=== PATIENT | female | born 2000 | race Caucasian/White ===

== ENCOUNTER 2024-06-14 05:18 | Emergency (ER) | payer MEDICAID, SELFPAY ==
[2024-06-14 05:41] VITALS: PULSE 92; RESP 16; O2SAT 100
[2024-06-14 05:43] VITALS: BMI 27.4
[2024-06-14 05:46] VITALS: BP 110/75; PULSE 92; RESP 20; TEMP 36.6; O2SAT 95
--- NOTE | 2024-06-14 07:34 | PD.EDALCOH ---
ED Alcohol RME/HPI General Chief Complaint: Alcohol Stated Complaint: ANXIETY Time Seen by Provider: 06/14/24 06:19 Arrival date/time: 06/14/24 05:18 RME / HPI RME / HPI narrative: DR. BERNAL MAIN ED EVALUATION: 23 year old female with past medical history significant for anxiety presents to the Emergency Department [facility] from home with complaint of alcohol abuse and an anxiety attack. Related Data Home Medications ?Medication ?Instructions ?Recorded ?Confirmed vitamins-iron fumarate 27 1 tab PO QDAY 04/07/18 11/01/20 mg iron-folic acid 0.8 mg tablet ( Vitamin) Previous Rx's ?Medication ?Instructions ?Recorded ibuprofen 800 mg tablet 800 mg PO Q8H PRN pain #30 tabs 11/01/20 Allergies Allergy/AdvReac Type Severity Reaction Status Date / Time No Known Allergies Allergy Verified 06/14/24 05:39 Review of Systems Review of Systems Systems Reviewed: All systems reviewed, normal except as documented Past Medical History Past Medical History REPRODUCTIVE: Positive Previous Pregnancies (X1) HEMATOLOGIC: Positive Blood Disorders and Anemia OTHER HISTORY: Positive Hospitalization ([facility]) and Blood Transfusions Family History FAMILY HISTORY: Positive Family Respiratory Disorders (asthma), Family Cardiac Disorders (great grandmmother) and Family Surgery (great grandmother heart surgery) Social History SMOKING STATUS: Current some day smoker SUBSTANCE USE: does not use ALCOHOL: Never ED Exam Narrative Physical exam: GENERAL APPEARANCE: alert and oriented x 4, well-developed, well-nourished, no acute distress, drunk VITALS: All vitals were reviewed and the pulse ox is 97% on room air, which is normal according to my interpretation. HEENT: Normocephalic, atraumatic; pupils equal, round, reactive to light; EOMI; mucous membranes pink, moist; oropharynx clear NECK: Supple LUNGS: CTABL; no wheezes, no rales, no rhonchi HEART: Regular rate, regular rhythm; normal S1, S2; no murmurs ABDOMEN: non distended; normal BS; soft, no tenderness, no guarding, no rebound; no masses, no organomegaly, no hernia BACK: no CVA tenderness EXTREMITIES: atraumatic; no edema NEUROLOGIC: awake; alert and oriented x4; cranial nerves II-XII grossly intact; no focal sensory or motor deficits PSYCHIATRIC: appropriate mood and affect SKIN: warm, dry, normal color; no rashes Course Quality Measures none Orders Category Date Time Status Alcohol, Blood Medical Stat Lab 06/14/24 07:10 Completed Drug Screen,Urine Stat Lab 06/14/24 08:58 Completed Vital Signs Vital signs: Vital Signs Temperature 97.8 F 06/14/24 05:46 Pulse Rate 92 06/14/24 05:46 Respiratory Rate 20 06/14/24 05:46 Blood Pressure 110/75 06/14/24 05:46 Pulse Oximetry (%) 95 06/14/24 05:46 Oxygen Delivery Method Nasal Cannula 06/14/24 05:46 Discharge Plan Plan Patient Disposition: HOME (Self Care) Prescriptions/Referrals Prescriptions/Med Rec: No Action ibuprofen 800 mg tablet 800 mg PO Q8H PRN (Reason: pain) Qty: 30 0RF Vitamin 27 mg iron- 0.8 mg Tablet 1 tab PO QDAY Referrals: Burt Greco MD [Primary Care Provider] - In 1 week Problem List Clinical Impression: Alcohol intoxication Patient/Caregiver Discharge Instructions Education Materials: ED Alcohol Intoxication Print Language: Macedonian Stand Alone Forms: Lilo Award Info., Patient Portal Info Letter Alcohol MDM Narrative MDM Narrative: Naomie Evans am scribing for and in the presence of Dr. Bernal. Patient data External records reviewed:: EMS form Clinical information provided by:: patient and EMS Social determinants that could affect healthcare access:: alcohol use Patient has the following chronic illnesses:: anxiety How is presenting disease/condition affected by chronic disease/condition?: exacerbated by Evaluation data The following diagnostics were reviewed and interpreted by me:: lab results Lab and/or radiology exams considered but not ordered:: none Interpretation Summary: Alcohol level 199. Medications / Prescriptions Medications or Prescriptions considered but not ordered:: none Medication administrations:: see above if any Consultations Consultation(s) initiated? (list below): No Diagnosis Differential diagnosis alcohol: alcohol withdrawal delirium, alcohol intoxication, alcohol withdrawal syndrome and other (anxiety) Most likely diagnosis given after review of the tests above:: Alcohol intoxication Admission Indicated Admission indicated?: not indicated Admission Request Was there a request for admission?: No Disposition Plan Disposition Plan: Discharge Discharge Attestation Discharge Attestation: The patient and all family members were given an opportunity to ask questions and understood the discharge instructions. Discharge instructions specifically effects, indications for sooner follow up or return to the emergency department, and the expected course of current diagnosis. Patient condition: Stable
[2024-06-14 07:39] VITALS: BP 95/76; PULSE 73; RESP 16; TEMP 36.4; O2SAT 99
--- NOTE | 2024-06-14 08:15 | PC.NURSE ---
Patient laying in [facility] room 19, appears to be sleeping, calm and opens eyes to name. Patient responds to name, patient only nodded yes/no to questions. Patient updated with plan of care, pending studies at this time. Call light is within reach.
[2024-06-14 09:00] VITALS: BP 93/59; PULSE 103; RESP 16; TEMP 36.7; O2SAT 97
--- NOTE | 2024-06-14 09:13 | PC.NURSE ---
Patient awake and ambulated to bathroom for urine specimen collection, patient denies anxiety, c/o some dizziness and right leg pain, denies injury to leg. Patient ambulated back to room and layed on gurney, call remains within reach.
[2024-06-14 09:45] LABS: Amphetamine/Methamp Scrn,U Negative (Negative); Barbiturate Screen,Urine Negative (Negative); Benzodiazepines Screen,Urine Negative (Negative); Benzoylecgonine Screen, Ur Negative (Negative); Fentanyl Screen,Urine Negative (Negative); Opiate Screen,Urine Negative (Negative); THC Screen,Urine Negative (Negative)
[2024-06-14 10:32] VITALS: PULSE 99; RESP 17; O2SAT 97
== END 2024-06-14 10:35 | disposition home or self-care (01) ==
PROVIDERS: Emergency Provider Emergency Medicine; PCP Family Medicine
DX: F10.129 Alcohol abuse with intoxication, unspecified (principal); Y90.6 Blood alcohol level of 120-199 mg/100 ml; F41.9 Anxiety disorder, unspecified
CPT/HCPCS: 36415; 80307; 80320; 99283; G0480

== ENCOUNTER 2025-03-01 13:15 | Emergency (ER) | payer MEDICAID, SELFPAY ==
[2025-03-01 13:29] VITALS: BP 117/80; PULSE 97; RESP 20; TEMP 36.8; O2SAT 98; BMI 27.6
--- NOTE | 2025-03-01 13:39 | PD.EDEYE ---
ED Eye Problem RME/HPI General Chief complaint: Eye Problems Stated complaint: POKED IN L) EYE Time Seen by Provider: 03/01/25 13:18 Arrival date/time: 03/01/25 13:15 24-year-old female presents to the emergency department today stating that her son stories all decibel he poked in the eye with his finger patient reports pain and tearing from the left eye patient reports no disturbances of vision Limitations: no limitations Related Data Home Medications ?Medication ?Instructions ?Recorded ?Confirmed vitamins-iron fumarate 27 1 tab PO QDAY 04/07/18 11/01/20 mg iron-folic acid 0.8 mg tablet ( Vitamin) Previous Rx's ?Medication ?Instructions ?Recorded ibuprofen 800 mg tablet 800 mg PO Q8H PRN pain #30 tabs 11/01/20 tobramycin 0.3 % eye drops 2 drp ophthalmic (eye) Q4H PRN eye 03/01/25 irritation 5 days #5 mL Allergies Allergy/AdvReac Type Severity Reaction Status Date / Time No Known Allergies Allergy Verified 03/01/25 13:18 Review of Systems Review of Systems Systems Reviewed: All systems reviewed, normal except as documented Constitutional Constitutional: Reports system reviewed and no additional complaints, except as documented, Denies fever(s) and Denies headache(s) Eyes Eyes: Reports system reviewed and no additional complaints, except as documented, Denies blurry vision and Reports other (Left eye irritation, tearing) ENT Ears, Nose, Mouth, and Throat: Reports system reviewed and no additional complaints, except as documented, Denies headache(s), Denies nasal congestion and Denies nasal discharge Cardiovascular Cardiovascular: Reports system reviewed and no additional complaints, except as documented, Denies chest pain and Denies dyspnea Respiratory Respiratory: Reports system reviewed and no additional complaints, except as documented, Denies chest congestion, Denies cough and Denies dyspnea Gastrointestinal Gastrointestinal: Reports system reviewed and no additional complaints, except as documented and Denies abdominal pain Integumentary/Breasts Skin/Breast: Reports system reviewed and no additional complaints, except as documented and Denies rash Neurologic Neurologic: Reports system reviewed and no additional complaints, except as documented, Reports as per HPI and Denies headache(s) Past Medical History Past Medical History NEUROLOGIC: Negative Neurological Disorders CARDIAC: Negative Cardiac Disorders or Congestive Heart Failure RESPIRATORY: Negative Chronic Obstructive Pulmonary Disease (COPD) GASTROINTESTINAL: Negative Gastrointestinal Disorders, Hepatitis or Colorectal Cancer GENITOURINARY: Negative Genitourinary Disorders, Renal Disease or Prostate Cancer REPRODUCTIVE: Positive Previous Pregnancies (X1); Negative Breast Cancer, Endometriosis, Genital Herpes, Gonorrhea, Pelvic Inflammatory Disease, Syphilis, Testicular Cancer or Uterine Prolapse MUSCULOSKELETAL: Negative Musculoskeletal Disorders or Bone Cancer ENDOCRINE: Negative Endocrine Disorders, Diabetes Mellitus Type 1 or Diabetes Mellitus Type 2 HEMATOLOGIC: Positive Blood Disorders and Anemia OTHER HISTORY: Positive Hospitalization ([facility]) and Blood Transfusions; Negative Autoimmune Disease, Down Syndrome, Developmental Delay, Shingles, Falls, Blood Transfusion Reaction, Anesthesia Reactions, MRSA, VRSA, Vancomycin-Resistant Enterococci, Human Immunodeficiency Virus (HIV), Chicken Pox, Measles, Mumps, Rubella (Bangladeshi Measles), Pertussis, Clostridium Difficile, Cancer, Breast Cancer, Cervical Cancer, Colorectal Cancer, Lung Cancer, Ovarian Cancer, Prostate Cancer or Testicular Cancer Family History FAMILY HISTORY: Positive Family Respiratory Disorders (asthma), Family Cardiac Disorders (great grandmmother) and Family Surgery (great grandmother heart surgery); Negative Family Psychiatric Problems, Family Gastrointestinal Problems, Family Cancer or Family Anesthesia Reaction Surgical History SURGICAL: Negative Section Social History SMOKING STATUS: Current every day smoker SUBSTANCE USE: does not use ED Exam General Limitations: Present no limitations General appearance: Present alert and in no apparent distress Head Head exam: Present atraumatic, normocephalic and normal inspection Eye Eye exam: Present normal appearance, PERRL and EOMI ENT ENT exam: Present normal exam, normal oropharynx and mucous membranes moist Neck Neck exam: Present normal inspection, full ROM and trachea midline Chest Chest inspection: Present normal inspection and symmetric chest wall rise Respiratory Respiratory exam: Present normal lung sounds bilaterally Cardiovascular Cardiovascular exam: Present regular rate, normal rhythm and normal heart sounds Abdominal Exam Abdominal exam: Present soft and normal bowel sounds Extremities Exam Extremities exam: Present normal inspection and full ROM Back Exam Back exam: Present normal inspection and full ROM Neurological Exam Neurological exam: Present alert, oriented X3 and CN II-XII intact Psychiatric Psychiatric exam: Present normal affect and normal mood Skin Skin exam: Present warm, dry, intact and normal color Course Quality Measures none Orders Category Date Time Status ED Eye Irrigation ONCE Care 03/01/25 13:38 Completed Colon Lamp to Bedside X1 Care 03/01/25 13:38 Completed Fluorescein Sodium [Bio-Jamia] Med 03/01/25 13:38 Discontinued 1 mg LEFT EYE X1 ONE TETRACAINE Op Avis 0.5% [Pontocaine Op Avis 0.5%] Med 03/01/25 13:38 Discontinued 1 drop LEFT EYE X1 ONE Vital Signs Vital signs: Vital Signs Temperature 98.3 F 03/01/25 13:29 Pulse Rate 97 03/01/25 13:29 Respiratory Rate 20 03/01/25 13:29 Blood Pressure 117/80 03/01/25 13:29 Pulse Oximetry (%) 98 03/01/25 13:29 Oxygen Delivery Method Room Air 03/01/25 13:29 O2 saturation 98% room air within normal limits Eye MDM Narrative MDM Narrative:: 24-year-old female presents to the emergency department today stating that her son stories all decibel he poked in the eye with his finger patient reports pain and tearing from the left eye patient reports no disturbances of vision On exam patient is tearing from the left eye and reports pain Patient had tetracaine instilled to the eye and I examined the patient's eye patient reports that he has complete relief of symptoms Patient reports no disturbances of vision pupils normal Patient discharged home in no distress to follow-up with primary care doctor in the next 24 to 48 hours and for any worsening symptoms to return to the ER immediately Patient data External records reviewed:: [facility] previous records Clinical information provided by:: patient Social determinants that could affect healthcare access:: none Patient has the following chronic illnesses:: None How is presenting disease/condition affected by chronic disease/condition?: no chronic disease Evaluation data The following diagnostics were reviewed and interpreted by me:: other (specify) (N/A) Lab and/or radiology exams considered but not ordered:: Considered not indicated Interpretation Summary: N/A Medications / Prescriptions Medications or Prescriptions considered but not ordered:: Given Medication administrations:: Medication Administration History Discontinued Medications Fluorescein Sodium (Fluorescein Sod 1 Mg Strp) 1 mg LEFT EYE X1 ONE Stop: 03/01/25 13:39 Last Admin: 03/01/25 14:01 Dose: Not Given Documented By: ALICE Non-Admin Reason: NOT USED BY PROVIDER Tetracaine HCl (Tetracaine Pf Op Avis 0.5% 4 Ml Drpette) 1 drop LEFT EYE X1 ONE Stop: 03/01/25 13:39 Last Admin: 03/01/25 13:55 Dose: 1 drop Documented By: ALICE Comments: ADMINISTERED BY PROVIDER Given Consultations Consultation(s) initiated? (list below): No Diagnosis Eye Problem Differential Diagnosis: corneal abrasion, conjunctivitis and corneal ulcer Most likely diagnosis given after review of the tests above:: Corneal injury Admission Indicated Admission indicated?: not indicated Admission Request Was there a request for admission?: No Disposition Plan Disposition Plan: Discharge Discharge Attestation Discharge Attestation: The patient and all family members were given an opportunity to ask questions and understood the discharge instructions. Discharge instructions specifically effects, indications for sooner follow up or return to the emergency department, and the expected course of current diagnosis. Patient condition: Stable Discharge Plan Plan Patient Disposition: HOME (Self Care) Discharge Disposition comment: Stable Prescriptions/Referrals Prescriptions/Med Rec: New tobramycin 0.3 % drops 2 drp ophthalmic (eye) Q4H PRN (Reason: eye irritation) 5 Days Qty: 5 0RF No Action ibuprofen 800 mg tablet 800 mg PO Q8H PRN (Reason: pain) Qty: 30 0RF Vitamin 27 mg iron- 0.8 mg Tablet 1 tab PO QDAY Problem List Clinical Impression: Corneal injury of left eye Patient/Caregiver Discharge Instructions Additional Instructions: Please follow up with your primary care doctor in the next 24-48hrs for any worsening symptoms return here immediately Print Language: Hong Konger Stand Alone Forms: Lilo Award Info., Patient Portal Info Letter PA/BAYRON Supervising Physician DAGMAR/BAYRON Supervising Physician: Dr. frazier
[2025-03-01] MEDS: TETRACAINE PF OP SOL 0.5% 4 ML DRPETTE 1 DROP LEFT EYE (13:55)
== END 2025-03-01 13:56 | disposition home or self-care (01) ==
LOC: SERX 14:03
PROVIDERS: Emergency Provider Nurse Practitioner Primary Care
DX: S05.92XA Unspecified injury of left eye and orbit, initial encounter (principal); W50.0XXA Accidental hit or strike by another person, initial encounter
CPT/HCPCS: 99281